=== PATIENT | female | born 1945 | race Caucasian/White ===

== ENCOUNTER 2024-03-18 07:42 | Inpatient (IN) | payer MEDICARE, OTHER, SELFPAY ==
[2024-03-16 20:17] VITALS: BP 128/86
[2024-03-16 20:18] VITALS: BP 128/86
[2024-03-16 20:28] VITALS: BMI 38.9
[2024-03-16 20:42] LABS: % Basophils 0.3 % (0-2); % Eosinophils 0.8 % (0-6); % Immature Granulocytes 0.7 % (0-0.5); % Lymphocytes 14.5 % (20.5-51.1); % Monocytes 10.5 % (1.7-9.3); % Neutrophils 73.2 % (42.2-75.2); Absolute Eosinophils 0.1 10^3/uL (0-0.7); Absolute Immature Granulocytes 0.1 10^3/uL (0-0.05); Absolute Lymphocytes 1.7 10^3/uL (1.2-3.4); Absolute Monocytes 1.3 10^3/uL (0.1-0.6); Absolute Neutrophils 8.8 10^3/uL (1.4-6.5); Hematocrit 38.9 % (37.0-47.0); Hemoglobin 12.7 g/dL (12.0-16.0); Mean Corp Hgb Conc. 32.6 g/dL (33.0-37.0); Mean Corpuscular Hgb 28.8 pg (27.0-31.0); Mean Corpuscular Volume 88.2 fL (81.0-99.0); Mean Platelet Volume 9.9 fL (7.4-10.4); Nucleated Red Blood Cells % 0 %; Platelet Count 208 10^3/uL (130-400); Red Blood Cell Count 4.41 10^6/uL (4.20-5.40); Red Cell Dist. Width 14.2 % (11.5-14.5)
--- NOTE | 2024-03-16 20:52 | ED.GENMED ---
History of Present Illness
General
Chief Complaint: Fall
Source: patient, family and ambulance crew
Exam Limitations: none
Time Seen by Provider: 03/16/24 20:17
Nursing documentation reviewed up to this point in time: agreed with
History of Present Illness
History of Present Illness:
Patient very pleasant 79-year-old female visiting from [place] to her son's house for the [place] she slipped coming out of the house twisted landed on her buttock and low back she has pain in her low back into her left hip she has chronic
back pains, on no blood thinners, no chest pain or shortness of breath, no head strike, no preceding chest pain or shortness of breath episode occurred just prior to arrival
Past History
Past History
ED Past Medical History: Other (Chronic back pain)
Social History
Tobacco: Non-smoker
Alcohol: None
Drug: None
Personal: Single
Living: with family
Employment: Retired
Review of Systems
Review of Systems
All Other Systems: Not applicable
Constitutional: Denies fever
EENT: Reports no symptoms
Respiratory: Reports no symptoms; Denies trouble breathing
Cardiac: Reports no symptoms
Musculoskeletal: Reports back pain
Neurological: Reports no symptoms
Endocrine: Reports no symptoms
Phy Exam
Physical Exam
Physical Exam:
Physical Exam
General: 79-year-old female no overt signs of head or neck trauma, looks uncomfortable due to pain, normal mental status
Neck: No tongue bite no posterior neck pain
Heart: Regular
Lungs: no acute respiratory distress. clear bilaterally
Abdomen: Nontender
Neuro: alert and oriented. no focal neurological deficits
Skin: no rash
Psychiatric: well kept. interactive and cooperative
Extremities: Mild pain with range of motion of the left hip
Course
Orders/Labs/Results
Orders:
Orders
03/16/24 20:34
Lumbar Spine, 2 or 3 View [CR Lumbar Spine 2 Or 3 Views] Urgent
Comment:
Reason For Exam: fall
Pelvis, 1 or 2 Views CR [CR Pelvis - 1 Or 2 Views ] Urgent
Comment:
Reason For Exam: fall
03/16/24 20:35
CBC/With Diff [Complete Blood Count/With Diff] Urgent
CMP [Comprehensive Metabolic Panel] Urgent
HYDROmorphone [Dilaudid] 1 mg IV NOW STA
Ketorolac [Toradol] 30 mg IV NOW STA
Ondansetron Injectable [Zofran] 4 mg IV NOW STA
03/16/24 21:53
diazePAM [Valium Injection] 5 mg IV NOW STA
03/16/24 21:55
Dexamethasone Sod Phosphate [Decadron] 10 mg IV NOW STA
03/16/24 22:14
Case Management Consult ONCE
Case Management Consult: Discharge Planning
03/17/24 06:00
Physical Therapy Consult [Pt Eval And Treat] IN AM
Activity Level: Ambulate
Abnormal Lab Results
03/16/24
20:35
WBC 12.0 H 10^3/uL
(4.8-10.8)
MCHC 32.6 L g/dL
(33.0-37.0)
Abs Immat Gran (auto) 0.1 H 10^3/uL
(0-0.05)
Absolute Neuts (auto) 8.8 H 10^3/uL
(1.4-6.5)
Absolute Monos (auto) 1.3 H 10^3/uL
(0.1-0.6)
Immature Gran % 0.7 H %
(0-0.5)
Lymphocytes % 14.5 L %
(20.5-51.1)
Monocytes % 10.5 H %
(1.7-9.3)
BUN 24 H mg/dl
(7-17)
Glucose 140 H mg/dl
(70-99)
03/16/24 20:35
03/16/24 20:35
Vital Signs
Initial and Last Documented VS:
Initial Vital Signs
Temp Pulse Resp BP Pulse Ox
98.0 F 115 22 128/86 97
03/16/24 20:17 03/16/24 20:17 03/16/24 20:17 03/16/24 20:17 03/16/24 20:17
Last Documented Vital Signs
Temp Pulse Resp BP Pulse Ox
98.0 F 99 17 126/66 79
03/16/24 20:17 03/16/24 22:45 03/16/24 22:45 03/16/24 22:40 03/16/24 22:45
*Radiology
Radiology exam reviewed: radiology read reviewed
*Pulse Oximetry
Patient hypoxic: no
*Critical Care Note
Total Time (30-74mins, 75-104mins- exclusive of procedures): Not Applicable
Update Note
Update Note:
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
Reviewed with patient and family, still with some pain appears improved though she is barely able to move out of the bed, will try some muscle relaxants and steroids, unsure if she will build to go home tonight may need PT and rehab she is scheduled
to get a steroid injection in [place] tomorrow
Update patient unable to get out of bed due to pain she is also desaturating suspect due to sleep apnea and analgesics
ED Attending Note
-
Portions of this chart may have been created with voice recognition software.� Occasional wrong word or��sound alike� substitutions may have occurred due to the inherent limitations of voice recognition software.
Discharge Plan
Departure
Patient Disposition: Admit
Date of Disposition: 03/16/24
Time of Disposition: 23:41
Admit to: Med/Surg
Presentation/result/management discussed w/ accepting MD/DO: Hospitalist
Patient with high blood pressure during this ER visit?: No
Condition: Fair
Discharge Problem:
Intractable low back pain
Instructions: Preventing falls in adults
Referrals:
UNKNOWN - PT DOES,NOT KNOW [Family Provider] -
Interventions
Interventions:
*Risk Screen - Suicide Last Done: 03/16/24 20:29
*General Assessment Last Done: 03/16/24 20:23
*Neglect/Abuse Screening Last Done: 03/16/24 20:29
ED- Fall Risk Assessment Last Done: 03/16/24 20:29
*ED COVID-19 Vaccine History Last Done: 03/16/24 20:23
ED-Musculoskeletal Assessment Last Done: 03/16/24 20:29
ED- Neurological Assessment Last Done: 03/16/24 20:29
ED-Skin Assessment Last Done: 03/16/24 20:29
Discharge Date and Time
Print Language: AZERI
[2024-03-16 21:00] VITALS: BP 132/80
[2024-03-16] MEDS: ZOFRAN 4 MG IV (21:01)
[2024-03-16] MEDS: TORADOL 30 MG IV (21:04)
[2024-03-16] MEDS: DILAUDID 1 MG IV (21:06)
[2024-03-16 21:08] LABS: ALT (SGPT) 16 U/L (0-35); AST (SGOT) 19 U/L (14-36); Albumin 4.1 g/dl (3.5-5.0); Alkaline Phosphatase 90 U/L (38-126); Blood Urea Nitrogen 24 mg/dl (7-17); Calcium 9.7 mg/dl (8.4-10.2); Carbon Dioxide 28 mmol/L (22-30); Chloride 102 mmol/L (98-107); Estimated Creatinine Clearance 51 ml/min; Glucose 140 mg/dl (70-99); Potassium 4.5 mmol/L (3.5-5.1); Sodium 139 mmol/L (135-145); Total Bilirubin 0.6 mg/dl (0.2-1.3); Total Protein 6.8 g/dl (6.3-8.2); eGFR 57.31
[2024-03-16] MEDS: DECADRON 10 MG IV (22:35)
[2024-03-16 22:40] VITALS: BP 126/66
[2024-03-16] MEDS: VALIUM INJECTION 5 MG IV (22:40)
[2024-03-16 23:00] VITALS: BP 105/59
[2024-03-17] VITALS (14 sets, daily range): BP systolic 104–163; BP diastolic 57–87; PULSE 85
--- NOTE | 2024-03-17 00:19 | HPS.HSE ---
Family Physician
-
Family Physician: NOT KNOW UNKNOWN - PT DOES
Chief Complaint
-
Low Back Pain s/p Fall
History of Present Illness
Patient is a 79y F with PMH significant for DDD and chronic pain who presents to ED complaining of low back pain s/p fall. Patient states that she was walking into her son's house this afternoon. She saw a package on the porch and bent to pick
it up. She lost her balance and started to fall forward. She attempted not to fall and ultimately ended up falling backwards and landing hard on her backside. Her was nearby and was able to grab hold of her coat - slowing her descent to
some degree. She did not strike her head nor lose consciousness. She denies any prodrome of lightheadedness, dizziness, chest pain, etc.
Patient noted severe lower back immediately after the fall. She was unable to get up - even with family assistance - as the pain as too great for her to move.
911 was called and patient was transported to the ED for evaluation.
Patient reports similar episode a few years ago. She required a brief stay in rehab at that time.
Patient currently complains of pain in the lower back - L > R. No pain into the legs at present.
Medical History
Past Medical History
Past Medical History: Reports Other
Additional Past Medical History:
Lumbar DDD
Chronic Back Pain
OAB
Obesity
Past Surgical History: Reports Other
Additional Past Surgical History:
Bilateral TKA
Hysterectomy
Left Hand Surgery
Cholecystectomy
Hemorrhoidectomy
Social History
Tobacco: Former Smoker (Quit smoking in 1988. Approx 10 pack years total use.)
Alcohol: Occasional
Personal:
Living: With Family
Family History
Family History: Not pertinent
Allergies / Home Medications
Allergies reflects when Allergies were last updated in [employer].
Home Medications with original date entered in [facility]
Allergy/Medication List:
Allergies
Allergy/AdvReac Type Severity Reaction Status Date / Time
iodine Allergy Severe Anaphylaxis Verified 03/16/24 20:54
Home Medications
gabapentin 300 mg capsule 300 mg PO HS 03/17/24
ibuprofen 200 mg tablet 600 mg PO Q6H PRN pain 03/17/24
loratadine 10 mg tablet (Claritin) 10 mg PO DAILY PRN allergies 03/17/24
Review of Systems
-
History Source: Patient
A 12 point ROS was completed and negative except as noted: Yes
Constitutional: Denies Fever or Chills
Respiratory: Denies Cough or Trouble Breathing
Cardiac: Denies Chest Pain or Palpitations
Abdomen/GI: Denies Abdominal Pain, Nausea, Vomiting or Diarrhea
: Reports Frequency; Denies Dysuria
Musculoskeletal: Reports Other (Back Pain); Denies Joint Pain
Physical Exam
Vital Signs
Vital Signs
Temp Pulse Resp BP Pulse Ox
98.0 F 105 21 107/69 90
03/16/24 20:17 03/16/24 23:45 03/16/24 23:45 03/17/24 00:00 03/16/24 23:45
Physical Exam
General: Other (79y F in mild distress due to back pain.)
HEENT: Moist mucous membranes
Respiratory: Clear; No Wheezes, Rales or Rhonchi
Cardiac: S1/S2 and Regular Rhythm; No Murmur
GI: Soft, Non Tender, Non Distended and Normal Bowel Sounds
Musculoskeletal: No Clubbing, No Cyanosis, No Edema and Other (Pos SLR bilaterally.)
Neuro: AO x 3
Laboratory Results
-
03/16/24 20:35
03/16/24 20:35
Laboratory Results
Total Bilirubin 0.6 mg/dl (0.2-1.3) 03/16/24 20:35
AST 19 U/L (14-36) 03/16/24 20:35
ALT 16 U/L (0-35) 03/16/24 20:35
Alkaline Phosphatase 90 U/L (38-126) 03/16/24 20:35
Impression/Plan
-
A/P: Patient is a 79y F with PMH significant for DDD and chronic pain who presents to ED complaining of low back pain s/p fall.
Fall at Home
Low Back Pain s/p Fall
Ambulatory Dysfunction secondary to the above
Chronic Lumbar DDD
- Observe overnight for further evaluation and treatment.
- Supportive care with heat application, pain control, etc,.
- PT eval in the AM.
- No evidence of neurologic deficits, etc.
- Imaging in the ED negative for any acute fracture / dislocation.
- Follow for clinical improvement.
- Continue usual gabapentin. Adjust dose if necessary.
- Patient notes that she typically receives LESI every 3 months or so. Was scheduled for one tomorrow.
OAB
- Stable. Not on any current therapies.
- Patient notes that she has tried and failed multiple medications, Botox, etc.
- Typically has 5-10 episodes of nocturia every evening.
- Concerned about ability to get up through the night at home with current pain / mobility issues.
- Purewick in place at present.
Obesity due to excess calories
Intermittent Hypoxemia
Suspected RODNEY
- Affects all aspects of care - including assisted back pain issues, etc.
- Encourage healthy diet and increased activity as tolerated with goal of weight loss.
- No formal diagnosis of RODNEY.
- Supplemental O2 as needed during stay.
- Consider formal PSG as an outpatient.
DVT Prophylaxis: SCDs
Code Status: Full
[2024-03-17] MEDS: TYLENOL 1000 MG PO ×3 (08:26→21:38)
[2024-03-17] MEDS: VALIUM 2 MG PO (08:33)
[2024-03-17] MEDS: DILAUDID 0.5 MG IV (08:33)
--- NOTE | 2024-03-17 08:40 | W.PN.HOSP.TC ---
Today's Communication/Plan
-
see bold
Assessment / Plan
Assessment / Plan
HPI: 79y F with PMH significant for DDD and chronic pain who presents to ED complaining of low back pain s/p fall.
Fall at Home
Low Back Pain s/p Fall
Ambulatory Dysfunction secondary to the above
Chronic Lumbar DDD
- Patient notes that she typically receives LESI every 3 months or so. Was scheduled for one 03/17.
- No evidence of neurologic deficits, etc.
- Pelvis & L spine Xrays neg any acute fracture / dislocation.
- Continue Tylenol scheduled, oral Dilaudid/IV Dilaudid as needed
- PT/OT
Leukocytosis
-Likely reactive, monitor
Constipation
� Start laxatives
OAB
- Stable. Not on any current therapies.
- Patient notes that she has tried and failed multiple medications, Botox, etc.
- Typically has 5-10 episodes of nocturia every evening.
- Concerned about ability to get up through the night at home with current pain / mobility issues.
- Purewick in place at present.
Obesity due to excess calories
Intermittent Hypoxemia
Suspected RODNEY
- Affects all aspects of care - including jail back pain issues, etc.
- Encourage healthy diet and increased activity as tolerated with goal of weight loss.
- No formal diagnosis of RODNEY.
- Supplemental O2 as needed during stay.
- Consider formal PSG as an outpatient.
DVT Prophylaxis: Subcu Lovenox
Code Status: Full
Updated family at bedside 03/17
Physical Exam
General: Obese, no acute distress
HEENT: Normocephalic, Atraumatic, EOMI, MMM
Respiratory: Clear to Auscultation bilaterally
Cardiac: Normal S1/S2, Regular Rate and Rhythm
GI: Soft, Nontender, Nondistended, Normal Bowel Sounds
Extremities: No Clubbing, Cyanosis, or Edema
Neuro: Nonfocal/Grossly Intact
Psych: Calm, Cooperative
Derm: No Visible lesions
Anticipated Discharge: 24 - 48 hours
Subjective/Interval History
-
Date of Service: March 17, 2024
Patient reports her back pain is 7 out of 10 in intensity at rest, 10 out of 10 with movement. Reports constipation. No fever, no vomiting.
Objective Data
-
Labs:
Laboratory Results
03/16/24
20:35
WBC 12.0 H
Hgb 12.7
Hct 38.9
Plt Count 208
Sodium 139
Potassium 4.5
Chloride 102
Carbon Dioxide 28
BUN 24 H
Creatinine 1.0
Glucose 140 H
Calcium 9.7
Total Bilirubin 0.6
AST 19
ALT 16
Alkaline Phosphatase 90
Vital Signs:
Vital Signs
Temp Pulse Resp BP Pulse Ox
98.0 F 90 17 141/67 92
03/16/24 20:17 03/17/24 06:00 03/17/24 06:00 03/17/24 06:00 03/17/24 06:00
[2024-03-17] MEDS: SENOKOT-S 2 TABLET PO ×2 (09:51→20:33)
[2024-03-17] MEDS: MIRALAX 17 GRAMS PO (09:51)
[2024-03-17] MEDS: ROXICODONE 5 MG PO (11:25)
[2024-03-17] MEDS: BENADRYL 25 MG PO (14:35)
--- NOTE | 2024-03-17 16:37 | CM ---
CM met with Radha to complete IA. She lives with her in ranch style home with 1 entry step. Pt's provides assistance with sock donning and any other needs that arise. Pt has a grab bar to help her get out of bed; no DME in the
home.
Radha was evaluated by PT today with recommendation for home care services.
CM will follow to coordinate discharge plans as identified during hospitalization.
--- NOTE | 2024-03-17 19:06 | PTCARENOTE ---
Received patient this am from ED. Pt oriented to room. Pt complained of back pain. Pt medicated with PRN meds with relief. Pt complained of itching after Roxicodone. Facial redness. No rash present. Dr. Ward made aware. Pt medicated with Benadryl PO
with relief. Roxicodone discontinued by . Dilaudid PO ordered PRN. Pt OOB to chair an tolerated well. Tolerated diet. Made patient comfortable. Cont to assess patient status.
[2024-03-17] MEDS: MYLICON 80 MG PO (20:33)
[2024-03-17] MEDS: NEURONTIN 300 MG PO ×2 (20:33→21:38)
[2024-03-17] MEDS: DILAUDID 2 MG PO (21:38)
[2024-03-18 07:30] VITALS: BP 156/93
--- NOTE | 2024-03-18 07:42 | W.PN.HOSP.TC ---
Today's Communication/Plan
-
see bold
Assessment / Plan
Assessment / Plan
HPI: 79y F with PMH significant for DDD and chronic pain who presents to ED complaining of low back pain s/p fall.
Fall at Home
Low Back Pain s/p Fall
Ambulatory Dysfunction secondary to the above
Chronic Lumbar DDD
- Patient notes that she typically receives LESI every 3 months or so. Was scheduled for one 03/17.
- No evidence of neurologic deficits, etc.
- Pelvis & L spine Xrays neg any acute fracture / dislocation.
- Continue Tylenol scheduled, oral Dilaudid/IV Dilaudid as needed, start prednisone 40 mg daily D1/7
- PT/OT - rec HH
Leukocytosis
-Patient is afebrile, no signs or symptoms of infection
-Likely reactive, monitor
Constipation
� Increase laxatives
Overactive bladder
- Not on any current therapies.
- Patient notes that she has tried and failed multiple medications, Botox, etc.
- Typically has 5-10 episodes of nocturia every evening..
- Purewick in place at present.
Obesity due to excess calories
Intermittent Hypoxemia
Suspected RODNEY
- Affects all aspects of care - including senior care back pain issues, etc.
- Encourage healthy diet and increased activity as tolerated with goal of weight loss.
- No formal diagnosis of RODNEY.
- Supplemental O2 as needed during stay.
- Consider formal PSG as an outpatient.
DVT Prophylaxis: Subcu Lovenox
Code Status: Full
Updated family at bedside 03/17
Total time spent to see the patient on the floor, examine the patient, review data and lab results, discuss treatment plan with patient, nursing staff around 37 minutes.
Physical Exam
General: Obese, no acute distress
HEENT: Normocephalic, Atraumatic, EOMI, MMM
Respiratory: Clear to Auscultation bilaterally
Cardiac: Normal S1/S2, Regular Rate and Rhythm
GI: Soft, Nontender, Nondistended, Normal Bowel Sounds
Extremities: No Clubbing, Cyanosis, or Edema
Neuro: Nonfocal/Grossly Intact
Psych: Calm, Cooperative
Derm: No Visible lesions
Anticipated Discharge: Within 24 hours
Subjective/Interval History
-
Date of Service: March 18, 2024
Patient reports her back pain is tolerable at rest, severe with any type of movement. She is constipated. No chest pain, no shortness of breath. No fever, no vomiting.
Objective Data
-
Vital Signs:
Vital Signs
Temp Pulse Resp BP Pulse Ox
97.9 F 77 18 148/87 93
03/17/24 23:53 03/17/24 23:53 03/17/24 23:53 03/17/24 23:53 03/17/24 23:53
I&O
03/17/24 03/18/24 03/19/24
06:59 06:59 06:59
Intake Total 0 / 0
Balance 0 / 0
[2024-03-18] MEDS: DILAUDID 2 MG PO ×2 (09:00→13:56)
[2024-03-18] MEDS: SENOKOT-S 2 TABLET PO ×2 (09:01→20:44)
[2024-03-18] MEDS: MIRALAX 17 GRAMS PO ×2 (09:01→20:44)
[2024-03-18] MEDS: TYLENOL 1000 MG PO ×3 (09:01→20:45)
[2024-03-18] MEDS: VALIUM 2 MG PO ×2 (09:08→17:17)
[2024-03-18] MEDS: DELTASONE 40 MG PO (10:30)
--- NOTE | 2024-03-18 12:57 | CHAP ---
Msgr. Joce Rodriguez of [facility] in [place] anointed Radha and gave her Holy Communion.
[2024-03-18 15:35] VITALS: BP 135/77
[2024-03-18] MEDS: MILK OF MAGNESIA 30 ML PO (15:58)
[2024-03-18 17:02] VITALS: BP 145/77; PULSE 96; O2SAT 93
[2024-03-18] MEDS: MOTRIN 600 MG PO (17:17)
--- NOTE | 2024-03-18 18:14 | PTCARENOTE ---
Received patient this am AAOX3. Pt complained of lower middle back pain. Pt medicated with PO Dilaudid and Motrin with relief. Pt complained of back spasms. Medicated with Valium Po with relief. Pt started on Prednisone today. OOB to chair an
tolerated well. Tolerated diet well. Pt has not had a BM. Pt medicated with Miralax and Milk of Magnesia with no result. Made patient comfortable. Cont to assess patient status.
[2024-03-18] MEDS: NEURONTIN 300 MG PO (20:45)
[2024-03-18 23:41] VITALS: BP 142/79
[2024-03-19 07:40] VITALS: BP 130/97
[2024-03-19] MEDS: DILAUDID 2 MG PO (08:05)
[2024-03-19] MEDS: DELTASONE 40 MG PO (08:06)
[2024-03-19] MEDS: MIRALAX 17 GRAMS PO (08:07)
[2024-03-19] MEDS: TYLENOL PO (08:07)
[2024-03-19] MEDS: SENOKOT-S 2 TABLET PO (08:07)
[2024-03-19] MEDS: MOTRIN 600 MG PO (08:12)
--- NOTE | 2024-03-19 08:25 | W.PN.HOSP.TC ---
Today's Communication/Plan
-
Hopeful for discharge home with home care tomorrow with continued improvement
Assessment / Plan
Assessment / Plan
HPI: 79y F with PMH significant for DDD and chronic pain who presents to ED complaining of low back pain s/p fall.
Fall at Home
Low Back Pain s/p Fall
Ambulatory Dysfunction secondary to the above
Chronic Lumbar DDD
- Patient notes that she typically receives LESI every 3 months or so. Was scheduled for one 03/17.
- No evidence of neurologic deficits, etc.
- Pelvis & L spine Xrays neg any acute fracture / dislocation.
- Continue Tylenol scheduled, oral Dilaudid/IV Dilaudid as needed, started prednisone 40 mg daily
- PT/OT - rec HH
Leukocytosis
-Patient is afebrile, no signs or symptoms of infection
-Likely reactive, monitor
Constipation
� Increased laxatives
Overactive bladder
- Not on any current therapies.
- Patient notes that she has tried and failed multiple medications, Botox, etc.
- Typically has 5-10 episodes of nocturia every evening.
Obesity due to excess calories
Intermittent Hypoxemia
Suspected RODNEY
- Affects all aspects of care - including senior living back pain issues, etc.
- Encourage healthy diet and increased activity as tolerated with goal of weight loss.
- No formal diagnosis of RODNEY.
- Supplemental O2 as needed during stay.
- Consider formal PSG as an outpatient.
DVT Prophylaxis: Subcu Lovenox
Code Status: Full
Updated family at bedside 03/17
Total time spent to see the patient on the floor, examine the patient, review data and lab results, discuss treatment plan with patient, nursing staff around 36 minutes.
Physical Exam
General: Obese, no acute distress
HEENT: Normocephalic, Atraumatic, EOMI, MMM
Respiratory: Clear to Auscultation bilaterally
Cardiac: Normal S1/S2, Regular Rate and Rhythm
GI: Soft, Nontender, Nondistended, Normal Bowel Sounds
Extremities: No Clubbing, Cyanosis, or Edema
Neuro: Nonfocal/Grossly Intact
Psych: Calm, Cooperative
Derm: No Visible lesions
Anticipated Discharge: Within 24 hours
Subjective/Interval History
-
Date of Service: March 19, 2024
Patient complains of continued severe back pain, 7 at rest, 10 with movement. She is still constipated. No fever, no vomiting.
Objective Data
-
Vital Signs:
Vital Signs
Temp Pulse Resp BP Pulse Ox
98.1 F 78 18 142/79 95
03/18/24 23:41 03/18/24 23:41 03/18/24 23:41 03/18/24 23:41 03/18/24 23:41
I&O
03/18/24 03/19/24 03/20/24
06:59 06:59 06:59
Intake Total 0 / 0 240 / 240
Balance 0 / 0 240 / 240
[2024-03-19] MEDS: CITROMA 300 ML PO (10:12)
--- NOTE | 2024-03-19 14:47 | PN.CDI ---
CDI
- -
CDI:
Physician Documentation Request
Admit Date: 03/18/24 07:42
Dear Doctor Do,
Patient admitted for back pain.
Laboratory Tests
03/16/24
20:35
WBC 12.0 H
03/16/24
20:17 03/16/24
20:30 03/16/24
21:00
Pulse 115 112 108
03/16/24
20:17 03/16/24
21:00 03/17/24
01:00
Resp Rate 22 27 23
Please clarify which most accurately describes the patient:
SIRS due to a non-infectious source
Systemic manifestations of infection, with 2 or more SIRS criteria which include:
Fever > 100.4 degrees F or hypothermia < 96.8 degrees F
Leukocytosis - WBC > 12,000 or leukopenia, WBC < 4,000 or > 10% bands
Tachycardia - > 90 beats per minute
Tachypnea - RR > 20 breaths per minute or PaCO2 < 32 mmHg
Source: Merck Manual 2013
Other
Unable to determine
Use of terms such as suspected, likely, concern for, or probable (associated with a specific diagnosis that is being evaluated, monitored, or treated as if it exists) are acceptable and can be coded in the inpatient setting, when documented at the
time of discharge.
Thank you,
Porsche Devries RN, BSN
CDI Specialist
Available via [place] text
Please use your independent medical judgment in providing your response.
[2024-03-19] MEDS: TYLENOL 1000 MG PO ×2 (14:56→21:06)
[2024-03-19] MEDS: DILAUDID 4 MG PO (14:56)
[2024-03-19 16:30] VITALS: BP 130/84
[2024-03-19] MEDS: DILAUDID 0.5 MG IV (18:04)
[2024-03-19] MEDS: SENOKOT-S PO (20:56)
[2024-03-19] MEDS: MIRALAX PO (20:56)
[2024-03-19] MEDS: MYLICON 80 MG PO (21:05)
[2024-03-19] MEDS: NEURONTIN 300 MG PO (21:05)
[2024-03-19] MEDS: BENADRYL 25 MG PO (21:59)
[2024-03-19 23:25] VITALS: BP 171/91
[2024-03-19] MEDS: VALIUM 2 MG PO (23:53)
[2024-03-20 01:40] VITALS: BP 159/90
[2024-03-20] MEDS: MOTRIN 600 MG PO (06:21)
[2024-03-20 07:35] VITALS: BP 119/74
--- NOTE | 2024-03-20 09:08 | W.PN.HOSP.TC ---
Addendum entered and electronically signed by Anam Ward MD 03/21/24 09:24:
SIRS due to a non-infectious source
Original Note:
Today's Communication/Plan
-
Discharge home with home care today
Assessment / Plan
Assessment / Plan
HPI: 79y F with PMH significant for DDD and chronic pain who presents to ED complaining of low back pain s/p fall.
Fall at Home
Low Back Pain s/p Fall
Ambulatory Dysfunction secondary to the above
Chronic Lumbar DDD
- Patient notes that she typically receives LESI every 3 months or so. Was scheduled for one 03/17.
- No evidence of neurologic deficits, etc.
- Pelvis & L spine Xrays neg any acute fracture / dislocation.
- Continue Tylenol scheduled, oral Dilaudid Dilaudid as needed, started prednisone 40 mg daily D3/7
- PT/OT - rec HH
- Medically stable for discharge on prednisone for 4 more days to complete a 7-day course, oral oxycodone
� Follow-up with her usual spine doctor outpt
Leukocytosis
-Patient is afebrile, no signs or symptoms of infection
-Likely reactive, monitor
Constipation
� Resolved on laxatives
Overactive bladder
- Not on any current therapies.
- Patient notes that she has tried and failed multiple medications, Botox, etc.
- Typically has 5-10 episodes of nocturia every evening.
Obesity due to excess calories
Intermittent Hypoxemia
Suspected RODNEY
- Affects all aspects of care - including ocean transportation intermediary back pain issues, etc.
- Encourage healthy diet and increased activity as tolerated with goal of weight loss.
- No formal diagnosis of RODNEY.
- Supplemental O2 as needed during stay.
- Consider formal PSG as an outpatient.
DVT Prophylaxis: Subcu Lovenox
Code Status: Full
Updated at bedside 03/20
Physical Exam
General: Obese, no acute distress
HEENT: Normocephalic, Atraumatic, EOMI, MMM
Respiratory: Clear to Auscultation bilaterally
Cardiac: Normal S1/S2, Regular Rate and Rhythm
GI: Soft, Nontender, Nondistended, Normal Bowel Sounds
Extremities: No Clubbing, Cyanosis, or Edema
Neuro: Nonfocal/Grossly Intact
Psych: Calm, Cooperative
Derm: No Visible lesions
Anticipated Discharge: Today
Subjective/Interval History
-
Date of Service: March 20, 2024
Patient continues to have back pain, 7 out of 10 in intensity. She is able to walk to the bathroom, and toilet herself. She is having loose stools. No fever, no vomiting.
Objective Data
-
Vital Signs:
Vital Signs
Temp Pulse Resp BP Pulse Ox
97.6 F 79 18 159/90 95
03/19/24 23:25 03/20/24 01:40 03/19/24 23:25 03/20/24 01:40 03/19/24 23:25
I&O
03/19/24 03/20/24 03/21/24
06:59 06:59 06:59
Intake Total 240 / 240 960 / 960
Output Total 400 / 400
Balance 240 / 240 560 / 560
[2024-03-20] MEDS: MIRALAX PO (09:12)
[2024-03-20] MEDS: SENOKOT-S PO (09:12)
[2024-03-20] MEDS: TYLENOL 1000 MG PO (09:17)
[2024-03-20] MEDS: DELTASONE 40 MG PO (09:17)
[2024-03-20] MEDS: DILAUDID 2 MG PO ×2 (09:23→14:16)
[2024-03-20] MEDS: MYLICON 80 MG PO (11:38)
[2024-03-20 12:30] VITALS: BP 124/70
--- NOTE | 2024-03-20 12:51 | CM ---
Addendum entered by Cait Haynes 03/20/24 12:54:
IMM provided, signed copy placed in chart and pt provided with a copy for herself.
Original Note:
CM met with Radha and her to discuss home care services. They live in [facility] and have chosen [facility] for VN services.
Pt's will drive home. Contact information for [facility] provided to pt/spouse.
Referred to
[facility]

[address] [place] [address] [place] [address]
--- NOTE | 2024-03-20 15:34 | PTCARENOTE ---
1500 Received patient this am AAOx3. Pt OOB to chair an tolerated well. Ambulated in room with assistance x1 with walker. Tolerated diet well. Pt complained of pain. Medicated with scheduled Tylenol, Motrin and Dilaudid prn. Made patient
comfortable. Cont to assess patient status.
--- NOTE | 2024-03-20 17:55 | W.DCSUMMARY ---
Discharge Summary
Discharge Data
Date of Admission: 03/18/24
Date of Discharge: 03/20/24
-
Pending Results: No
Hospital Course
Discharge diagnosis:
Acute on chronic lower back pain
Mechanical falls
Ambulatory dysfunction
Chronic lumbar degenerative disc disease
Systemic inflammatory response syndrome due to noninfectious source
Leukocytosis
Tachycardia
Constipation
Overactive bladder
Obesity due to excess calories
Intermittent hypoxemia
Suspected obstructive sleep apnea
Lumbar Spine XR:
There is no evidence of acute compression fracture.
Multilevel moderate degenerative changes most pronounced at L4-L5.
Hospital course:
79-year-old female with a past medical history of degenerative disc disease, overactive bladder, and obesity was admitted for acute on chronic back pain secondary to mechanical fall. Patient had a leukocytosis that was likely reactive, and
tachycardia. She was treated with Tylenol, lidocaine patch, prednisone, and opioids. She was seen in conjunction with PT, who recommended home PT. After several days, her pain improved. She is medically stable for discharge. She will be
discharged on prednisone to complete a 7-day course, lidocaine patches, and oxycodone as needed. She has been given a prescription for an outpatient lumbar spine MRI. She needs to follow-up with her primary care doctor in 1 week, and her usual
spine doctor in 2-3 weeks.
Disposition: Home with home care
Discharge planning: Required 42 minutes
Discharge Plan
-
Patient Disposition: Home with Home Care
Discharge Diagnosis/Procedures: Acute on chronic back pain, mechanical fall, chronic lumbar degenerative disc disease, constipation, overactive bladder, obesity due to excess calories, suspected obstructive sleep apnea
Condition: Fair
Diet: Low Fat and Low Cholesterol
Activity: As tolerated
Driving Restrictions: As prior to admission
Other Services: VN and PT
Activity Restrictions/Additional Instructions:
Please take your medications as directed.
Recommend you getting a sleep study to assess for sleep apnea, this can be done with your family doctor or a candle extrusion machine operator.
Follow-up with your family doctor in 1 week, and your usual back/spine doctor in 1-2-week.
Referrals:
UNKNOWN - PT DOES,NOT KNOW [Family Provider] -
Prescriptions:
New
prednisone 20 mg Tablet
40 mg PO DAILY 4 Days Qty: 8 0RF
acetaminophen [Tylenol Extra Strength] 500 mg Tablet
1,000 mg PO TID PRN (Reason: fever or mild pain) Qty: 90 0RF
simethicone 80 mg Tablet,Chewable
80 mg PO QIDPRN PRN (Reason: gas pain/bloat) Qty: 60 0RF
oxycodone 5 mg tablet
5 mg PO TID PRN (Reason: severe pain) Qty: 60 0RF
polyethylene glycol 3350 17 gram/dose powder
17 g PO DAILY Qty: 510 0RF
Senna Plus 8.6-50 mg capsule
2 tab-cap PO HS Qty: 60 0RF
lidocaine 4 % adhesive patch,medicated
1 patch topical DAILY Qty: 30 0RF
Continued
gabapentin 300 mg Capsule
300 mg PO HS
loratadine [Claritin] 10 mg Tablet
10 mg PO DAILY PRN (Reason: allergies)
ibuprofen 200 mg Tablet
600 mg PO Q6H PRN (Reason: moderate pain) Qty: 0 0RF
Discharge Orders:
Discharge Patient (As Directed); Ordered 03/20/24
Ordered By: Anam Ward
Discharge Date and Time
Discharge Date/Time: 03/20/24 16:09
Print Language: OCCITAN
== END 2024-03-20 16:09 | disposition home health service (06) | DRG 552 ==
LOC: 4 EAST ACU 07:42
PROVIDERS: ADMITTING PHYSICIAN Hospitalist; ATTENDING PHYSICIAN Family Medicine; EMERGENCY PHYSICIAN Emergency Medicine
DX: M51.360 Other intervertebral disc degeneration, lumbar region with discogenic back pain only (principal); R65.10 Systemic inflammatory response syndrome (SIRS) of non-infectious origin without acute organ dysfunction; E66.09 Other obesity due to excess calories; N32.81 Overactive bladder; G47.33 Obstructive sleep apnea (adult) (pediatric); R09.02 Hypoxemia; K59.00 Constipation, unspecified; G89.29 Other chronic pain; W18.39XA Other fall on same level, initial encounter; Z68.38 Body mass index [BMI] 38.0-38.9, adult; Z87.891 Personal history of nicotine dependence; Z96.653 Presence of artificial knee joint, bilateral
CPT/HCPCS: 72100; 72170; 74018; 80053; 85025; 93005; 96374; 96375; 97116; 97162; 97166; 97530; 99285